=== PATIENT | female | born 1960 | race Two or more races ===

== ENCOUNTER 2021-01-23 01:40 | Emergency (ER) | payer MEDICAID ==
[~2021-01-23] VITALS: Ht 162.6 cm; Wt 103.0 kg
[2021-01-23] MEDS ORDERED: CALC-877 PO (01:47)
[2021-01-23] MEDS ORDERED: ASPI-1450 PO (01:47)
[2021-01-23] MEDS ORDERED: CHOL400T56 PO (01:47)
[2021-01-23] MEDS ORDERED: CITA10TA99 PO (01:47)
[2021-01-23 02:05] VITALS: BP 108/88
[2021-01-23] MEDS ORDERED: CEPHALEXIN MONOHYDRATE 500 MG CAPSULE PO ONE (02:15)
[2021-01-23] MEDS ORDERED: SULFAMETHOX/TRIMETH DS 800-160 MG/TABLET PO ONE (02:15)
== END 2021-01-23 02:56 | disposition home or self-care (01) ==
LOC: EMS 01:42
DX: L73.9 Follicular disorder, unspecified (principal); F32.9 Major depressive disorder, single episode, unspecified; Z79.82 Long term (current) use of aspirin
CPT/HCPCS: 99283